=== PATIENT | male | born 1940 | race Caucasian/White ===

== ENCOUNTER 2017-04-20 07:06 | Day surgery (SDC) | payer OTHER ==
[~2017-04-20] VITALS: Ht 170.2 cm; Wt 71.2 kg
[~2017-04-20 07:06] MED LIST: ASPI325 PO; ASPI81CH PO; ATOR10 PO; ATOR20 PO; CITA20 PO; DICL75ER PO; DOCU100 PO; DOXY100 PO; Effexor Xr150 MG PO; FAMO20 PO; FERROUS SULFATE PO; HYDACE5 PO; HYDR1TAB94 PO; HYDROCODON-ACE1 EAC3 PO; Hydrocodone-Ap1 EA23 PO; IBUP600 PO; MECL12.5 PO; METO10 PO; Norco 10-325 T1 EACH PO; Norco 5-325 Ta1 EACH PO; OXYACE5T PO; PANT40 PO; Percocet 5-3251 EACH PO; RANI150 PO; RXHYDACE PO; RXPROM25 PO; STIOLTO RESPIMAT4 GM IH; STIOLTO RESPIMAT4 GM INH; TAMS.4ER PO; TIOT18 IH; TIOT18 INH; VENL150ER PO; Zofran Odt8 MG SL; Zofran4 MG PO
[2017-10-05] MEDS ORDERED: OLAN10 PO (08:16)
[2017-10-05] MEDS ORDERED: DECADRON4 MG (08:17)
[2017-10-05] MEDS ORDERED: METO10 PO (08:18)
[2017-12-20] MEDS ORDERED: LEVO750 PO (13:44)
[2017-12-20] MEDS ORDERED: VALA500 PO (13:44)
[2017-12-21] MEDS ORDERED: OLAN10 PO (10:18)
[2017-12-21] MEDS ORDERED: MOUTHWASH-OM240 ML PO (10:35)
[2018-01-04] MEDS ORDERED: SACC250C PO (14:11)
[2018-01-04] MEDS ORDERED: ASCO500 PO (14:11)
[2018-01-04] MEDS ORDERED: Ferrous Sulfat325 M2 PO (14:11)
[2018-01-04] MEDS ORDERED: ALBU3IS INH (14:12)
[2018-01-04] MEDS ORDERED: ACET325 PO (14:17)
== END 2017-04-20 22:36 | disposition home or self-care (01) ==
LOC: ORSCMMR 07:06 → ORD 08:30 → ORSCMMR 22:36
PROVIDERS: Surgery
PROC: B5181ZA Fluoroscopy of Superior Vena Cava using Low Osmolar Contrast, Guidance (ICD-10-PCS; principal; 2017-04-20 08:30)
PROC: 02HV33Z Insertion of Infusion Device into Superior Vena Cava, Percutaneous Approach (ICD-10-PCS; principal; 2017-04-20 08:30)
DX: C15.5 Malignant neoplasm of lower third of esophagus (principal); J44.9 Chronic obstructive pulmonary disease, unspecified; Z87.891 Personal history of nicotine dependence; E78.00 Pure hypercholesterolemia, unspecified; Z79.899 Other long term (current) drug therapy
CPT/HCPCS: 77001; C1788; J0690; J1642; J2250; J3010; J7120

== ENCOUNTER 2017-08-05 08:52 | Day surgery (SDC) | payer OTHER | END 2017-08-05 22:47 | disposition home or self-care (01) | LOC: CT 08:52 → ORD 10:00 → CT 22:47 | PROVIDERS: Radiology Diagnostic Radiology | PROC: 0FB13ZX Excision of Right Lobe Liver, Percutaneous Approach, Diagnostic (ICD-10-PCS; principal; 2017-08-05 10:00) | DX: C78.7 Secondary malignant neoplasm of liver and intrahepatic bile duct (principal); C16.0 Malignant neoplasm of cardia; Z87.891 Personal history of nicotine dependence; Z79.899 Other long term (current) drug therapy | CPT/HCPCS: 47000; 77012 ==

== ENCOUNTER → 2017-08-08 | Outpatient (CLI) | payer OTHER | LOC: LAB SHORT 09:52 | DX: C16.9 Malignant neoplasm of stomach, unspecified (principal) ==

== ENCOUNTER 2018-03-31 08:42 | Day surgery (SDC) | payer OTHER ==
[~2018-03-31 08:42] MED LIST changes: +ACET325 PO; +ALBU3IS INH; +ASCO500 PO; +DECADRON4 MG; +Ferrous Sulfat325 M2 PO; +LEVO750 PO; +MOUTHWASH-OM240 ML PO; +OLAN10 PO; +SACC250C PO; +VALA500 PO
== END 2018-03-31 18:09 | disposition home or self-care (01) ==
LOC: ATC 08:42
DX: Z45.2 Encounter for adjustment and management of vascular access device (principal); C78.7 Secondary malignant neoplasm of liver and intrahepatic bile duct; C15.5 Malignant neoplasm of lower third of esophagus
CPT/HCPCS: 96523; J1642

== ENCOUNTER 2018-05-02 08:54 | Day surgery (SDC) | payer OTHER ==
[~2018-05-02] VITALS: Ht 170.2 cm; Wt 73.0 kg
--- NOTE | 2018-05-02 11:03 | NUR ---
05/02/18 1103 Shyam Hawley IV, DC'Shirley. MEDIPORT FLUSHED WITH 5MLS OF SALINE, FOLLOWED BY 5MLS OF HEPARIN. SITE DRY, NO REDNESS. BANDAID PLACED. C/D/I.
== END 2018-05-02 11:00 | disposition home or self-care (01) ==
LOC: ORSCSDS 08:54
PROVIDERS: Internal Medicine Gastroenterology
PROC: 0DB38ZX Excision of Lower Esophagus, Via Natural or Artificial Opening Endoscopic, Diagnostic (ICD-10-PCS; principal; 2018-05-02 10:00)
DX: R13.10 Dysphagia, unspecified (principal); C15.5 Malignant neoplasm of lower third of esophagus; K21.9 Gastro-esophageal reflux disease without esophagitis; J44.9 Chronic obstructive pulmonary disease, unspecified; Z87.891 Personal history of nicotine dependence; Z79.899 Other long term (current) drug therapy; Z85.01 Personal history of malignant neoplasm of esophagus
CPT/HCPCS: 88305; J1642; J1644; J7120

== ENCOUNTER → 2018-05-22 | Outpatient (CLI) | payer OTHER ==
[2018-05-22 12:07] LABS: BASOPHILS ABSOLUTE AUTO 0.05 K/mm3 (0.00-0.23); BASOPHILS PERCENT AUTO 1 % (0-2); EOSINOPHILS ABSOLUTE AUTO 0.27 K/mm3 (0.00-0.68); EOSINOPHILS PERCENT AUTO 5 % (0-6); Hematocrit 35.3 % (37.0-53.0); Hemoglobin 11.5 g/dL (13.5-17.5); IMMATURE GRAN ABSOLUTE AUTO 0.01 K/mm3 (0.00-0.10); IMMATURE GRAN PERCENT AUTO 0 % (0-1); LYMPHOCYTES PERCENT AUTO 17 % (21-46); MONOCYTES ABSOLUTE AUTO 0.51 K/mm3 (0.16-1.47); MONOCYTES PERCENT AUTO 9 % (4-13); Mean Corpuscular HGB 32.7 pg (26.0-34.0); Mean Corpuscular HGB Conc 32.6 g/dL (31.5-36.5); Mean Corpuscular Volume 100 fL (80-100); Mean Platelet Volume 9.2 fL (9.1-12.4); NEUTROPHILS ABSOLUTE AUTO 3.94 K/mm3 (1.96-9.15); NEUTROPHILS PERCENT AUTO 68 % (41-73); Platelet Count 212 K/mm3 (150-400); RDW Coefficient Variation 13.5 % (11.7-14.2); RDW Standard Deviation 49.2 fL (35.1-46.3); Red Blood Cell Count 3.52 M/mm3 (4.30-5.90); White Blood Cell Count 5.78 K/mm3 (4.00-11.30)
[2018-05-22 12:19] LABS: Alanine Aminotransfer (ALT/SGP 19 U/L (12-78); Albumin, Blood 3.6 g/dL (3.4-5.0); Albumin/Globulin Ratio 1.1 (0.8-1.8); Alk Phos 142 U/L (50-136); Anion Gap 6 mmol/L (6-16); Aspartate Aminotrans (AST/SGOT 21 U/L (12-37); Bilirubin, Total 0.8 mg/dL (0.1-1.0); Blood Urea Nitrogen 18 mg/dL (8-24); Bun/Creatinine Ratio 17.8 (12.0-20.0); CO2, Blood 27 mmol/L (21-32); Calcium, Blood 9.4 mg/dL (8.5-10.1); Chloride, Blood 108 mmol/L (98-108); Creatinine, Blood 1.01 mg/dL (0.60-1.20); Globulin, Blood 3.3 g/dL (2.2-4.0); Glomerular Filtration Rate >60 (60-); Glucose, Blood 90 mg/dL (70-99); Potassium, Blood 4.2 mmol/L (3.5-5.5); Sodium, Blood 141 mmol/L (136-145); Total Protein, Blood 6.9 g/dL (6.4-8.2)
== END | disposition home or self-care (01) ==
LOC: LAB SHORT 11:43 → LAB 11:43
PROVIDERS: Internal Medicine Hematology & Oncology
DX: C15.5 Malignant neoplasm of lower third of esophagus (principal); C78.7 Secondary malignant neoplasm of liver and intrahepatic bile duct; R06.02 Shortness of breath
CPT/HCPCS: 80053; 85025

== ENCOUNTER 2018-05-24 16:30 | Emergency (ER) | payer OTHER ==
[~2018-05-24] VITALS: Ht 170.2 cm; Wt 69.0 kg
[2018-05-24 17:13] LABS: BASOPHILS ABSOLUTE AUTO 0.02 K/mm3 (0.00-0.23); BASOPHILS PERCENT AUTO 0 % (0-2); EOSINOPHILS PERCENT AUTO 7 % (0-6); Hematocrit 33.9 % (37.0-53.0); Hemoglobin 11.1 g/dL (13.5-17.5); IMMATURE GRAN ABSOLUTE AUTO 0.01 K/mm3 (0.00-0.10); IMMATURE GRAN PERCENT AUTO 0 % (0-1); LYMPHOCYTES ABSOLUTE AUTO 1.21 K/mm3 (0.84-5.20); LYMPHOCYTES PERCENT AUTO 27 % (21-46); MONOCYTES ABSOLUTE AUTO 0.49 K/mm3 (0.16-1.47); MONOCYTES PERCENT AUTO 11 % (4-13); Mean Corpuscular HGB 33.2 pg (26.0-34.0); Mean Corpuscular HGB Conc 32.7 g/dL (31.5-36.5); Mean Corpuscular Volume 102 fL (80-100); NEUTROPHILS ABSOLUTE AUTO 2.46 K/mm3 (1.96-9.15); NEUTROPHILS PERCENT AUTO 55 % (41-73); Platelet Count 190 K/mm3 (150-400); RDW Coefficient Variation 13.3 % (11.7-14.2); RDW Standard Deviation 49.5 fL (35.1-46.3); Red Blood Cell Count 3.34 M/mm3 (4.30-5.90); White Blood Cell Count 4.49 K/mm3 (4.00-11.30)
[2018-05-24 17:46] LABS: Alanine Aminotransfer (ALT/SGP 19 U/L (12-78); Albumin, Blood 3.4 g/dL (3.4-5.0); Albumin/Globulin Ratio 1.1 (0.8-1.8); Alk Phos 137 U/L (50-136); Anion Gap 6 mmol/L (6-16); Aspartate Aminotrans (AST/SGOT 24 U/L (12-37); Bilirubin, Total 0.4 mg/dL (0.1-1.0); Blood Urea Nitrogen 17 mg/dL (8-24); Bun/Creatinine Ratio 16.3 (12.0-20.0); CO2, Blood 26 mmol/L (21-32); Calcium, Blood 8.7 mg/dL (8.5-10.1); Chloride, Blood 108 mmol/L (98-108); Creatinine, Blood 1.04 mg/dL (0.60-1.20); Glomerular Filtration Rate >60 (60-); Glucose, Blood 82 mg/dL (70-99); Sodium, Blood 140 mmol/L (136-145); Total Protein, Blood 6.4 g/dL (6.4-8.2)
[2018-05-24 19:15] LABS: Source, Urine Clean Catch
[2018-05-24 19:23] LABS: Bilirubin, Urine Neg (Neg); Blood, Urine Neg (Neg); Glucose Qualitative, Urine Neg (Neg); Ketones, Urine Neg (Neg); Leukocyte Esterase, Urine Neg (Neg); Nitrite, Urine Neg (Neg); Protein, Urine Neg (Neg); Specific Gravity, Urine 1.015 (1.003-1.022); Urobilinogen, Urine NORM (Normal); pH, Urine 6.5 (5.0-8.0)
[2018-05-24 19:28] LABS: Appearance, Urine Clear (Clear); Color, Urine Yellow (P-Yellow)
== END 2018-05-24 23:15 | disposition home or self-care (01) ==
LOC: ER 16:30
PROVIDERS: Emergency Medicine
DX: G93.40 Encephalopathy, unspecified (principal); C15.9 Malignant neoplasm of esophagus, unspecified; Z87.891 Personal history of nicotine dependence; Z79.899 Other long term (current) drug therapy
CPT/HCPCS: 36415; 80053; 81003; 85025; 99284